=== PATIENT | female | born 1980 | race African-American/Black ===

== ENCOUNTER 2016-06-07 21:38 | Emergency (ER) | payer OTHER ==
[~2016-06-07] VITALS: Ht 152.4 cm; Wt 68.0 kg
[2016-06-07 23:10] LABS: Urine Bilirubin Negative (Negative); Urine Blood Negative /uL (Negative); Urine Color Yellow (Yellow); Urine Glucose Normal (Normal); Urine Mucus FEW (None Seen); Urine Nitrite Negative (Negative); Urine RBC <1 /hpf (0 - 4); Urine Squamous Epithelial Cell FEW /hpf (<5)
[2016-06-07 23:13] LABS: Urine Ketone 1+ (Negative)
[2016-06-07 23:18] LABS: Basophils # (auto) 0 uL; Basophils % (auto) 0.5 % (0.0-2.0); Eosinophils # (auto) 0 uL; Eosinophils % (auto) 0.2 % (0.0-7.0); Hematocrit 36.8 % (36.0-46.0); Hemoglobin 11.8 g/dL (12.2-16.2); Lymphocytes # (auto) 1.1 uL; Lymphocytes % (auto) 17.3 % (10.0-50.0); Mean Corpuscular Hemoglobin 31.8 pg (28.0-32.0); Mean Corpuscular Hgb Conc. 32.2 g/dL (32.0-36.0); Mean Corpuscular Volume 98.9 fL (80.0-100.0); Mean Platelet Volume 9.6 fL (7.4-10.4); Monocytes # (auto) 0.5 uL; Monocytes % (auto) 8.1 % (0.0-12.0); Neutrophils # (auto) 4.8 uL; Neutrophils % (auto) 73.9 % (37.0-80.0); Platelet Count (auto) 265 10^3/uL (140-450); Red Cell Distribution Width 13.7 % (11.6-16.0); White Blood Cell 6.5 10^3/uL (4.4-10.8)
[2016-06-07 23:32] LABS: Albumin 4.1 g/dL (3.4-5.0); BUN/Creatinine Ratio 8.8; Bilirubin, Total 0.4 mg/dL (0.2-1.0); Calcium 8.8 mg/dL (8.5-10.1); Magnesium 2.1 mg/dL (1.6-2.6); Potassium 3.4 mmol/L (3.5-5.1); Total Protein 7.6 g/dL (6.4-8.2)
[2016-06-08 00:11] LABS: INR 0.98 (0.9-1.15); Partial Thromboplastin Time 28.8 sec (22.64-33.71); Prothrombin Time 10.1 sec (9.37-12.3)
[2016-06-08] MEDS ORDERED: SODIUM CHLORIDE 0.9% 1,000 ML IV ONE (02:31)
[2016-06-08] MEDS ORDERED: DONNATAL 5ml ORAL Elix (BELLADONNA ALK-PHENOBARB) PO ONE (02:45)
[2016-06-08] MEDS ORDERED: ALUM & MAG HYDROX-SIMETH LIQ(MAALOX) 30 ML PO ONE (02:45)
[2016-06-08] MEDS ORDERED: LIDOCAINE VISCOUS 2% 15ML UD PO ONE (02:45)
[2016-06-08] MEDS ORDERED: ONDANSETRON HCL 4 MG/2 ML VIAL IV ONE (02:45)
[2016-06-08 03:00] VITALS: BP 96/58
[2016-06-08] MEDS ORDERED: NITROFURANTOIN (MONO) 100 mg CAP PO ONE (03:15)
== END 2016-06-08 04:18 | disposition home or self-care (01) ==
LOC: ER 21:54
DX: R07.9 Chest pain, unspecified (principal); R11.2 Nausea with vomiting, unspecified; J45.909 Unspecified asthma, uncomplicated; R10.9 Unspecified abdominal pain; R06.00 Dyspnea, unspecified
CPT/HCPCS: 36415; 71010; 74176; 80053; 81001; 83735; 84484; 85025; 85610; 85730; 93005; 96361; 96374; 99285; J2405; J7030